=== PATIENT | male | born 1945 | race Caucasian/White ===

== ENCOUNTER → 2018-03-14 | Day surgery (SDC) | payer MEDICARE ==
[~2018-03-14] MED LIST: ASPIRIN81 MG; AVODART0.5 MG PO; CEFAZOLIN SOD 1 GM VIAL ONE; COMBIGAN EYE DRO5 ML; FENTANYL CITRATE/PF 100MCG/2 ML INJ ONE; HYZAAR 50-12.51 EACH; LIDOCAINE 1% W/EPINEPHRINE 20 ML VIAL ONE; MIDAZOLAM HCL 2 MG/2 ML VIAL ONE; MUPIROCIN 2% OINT 22 GM TUBE ONE; POTASSIUM CITR10 MEQ PO; PROPOFOL IV EMULSION 10 MG/ML 20 ML VIAL ONE; TRAVATAN Z5 ML OP
[2018-03-14 08:05] VITALS: BP 116/51
--- NOTE | 2018-03-14 10:30 | Operative Report ---
DATE OF PROCEDURE: March 14, 2018 PREOPERATIVE DIAGNOSES 1. Sublingual salivary gland cyst (ranula), left sublingual area. 2. Cyst of lower lip, submucosal. POSTOPERATIVE DIAGNOSES 1. Sublingual salivary gland cyst (ranula), left sublingual area. 2. Cyst of lower lip, submucosal. PROCEDURES PERFORMED 1. Excision of sublingual salivary cyst. 2. Excision of mucosa, lower lip, with simple repair. ANESTHESIA: MAC/local. HISTORY: The patient is a 72-year-old male with a 1.3-cm cystic mass in the left lower sublingual area and also of the midline of the lower lip. These are consistent with salivary gland cysts. Risks, benefits and alternatives of treatment were discussed with the patient. He is prepared to undergo the procedures outlined. DETAILS OF PROCEDURE: The patient was marked preoperatively in the holding area. He was brought to the operating theater. After the induction of adequate IV sedation, he was prepped and draped in a supine position. A time out was performed. The procedure was begun by infiltrating the intraoral mucosa with 1% Xylocaine with epinephrine on the left sublingual side and in the midline of the lower lip. After waiting an appropriate amount of time for maximum vasoconstrictive effect, the salivary cyst in the sublingual area was incised through the skin and mucosal tissues. The cyst was identified, and it was enucleated from the salivary gland tumor. The bed was made hemostatic using the electrocautery. The wound was irrigated and closed with 5-0 chromic in an interrupted fashion. The incision in the lower lip was made through the mucosa until the cyst was identified. The cyst was enucleated from the orbicularis elina muscle. The wound bed was then made hemostatic using electrocautery. The wound was then closed with 5-0 chromic in an interrupted simple fashion. Both specimens were sent for permanent pathologic examination. The wounds were noted to be hemostatic, and the patient was returned to the recovery room in satisfactory condition and discharged with a postoperative instruction sheet as well as a followup appointment. Job#: [id number]
== END | disposition home or self-care (01) ==
LOC: OR 05:08
PROVIDERS: ATTEND Plastic Surgery
DX: K11.6 Mucocele of salivary gland (principal); K13.0 Diseases of lips; I10 Essential (primary) hypertension; R00.1 Bradycardia, unspecified; Z01.810 Encounter for preprocedural cardiovascular examination; Z79.82 Long term (current) use of aspirin
CPT/HCPCS: 11442; 42408; 88304; 93005; J0690; J2250; 88305

== ENCOUNTER → 2020-11-26 | Outpatient (CLI) | payer MEDICARE, OTHER ==
[~2020-11-26] MED LIST changes: -CEFAZOLIN SOD 1 GM VIAL ONE; -FENTANYL CITRATE/PF 100MCG/2 ML INJ ONE; -LIDOCAINE 1% W/EPINEPHRINE 20 ML VIAL ONE; -MIDAZOLAM HCL 2 MG/2 ML VIAL ONE; -MUPIROCIN 2% OINT 22 GM TUBE ONE; -PROPOFOL IV EMULSION 10 MG/ML 20 ML VIAL ONE
== END ==
LOC: US 14:27
PROVIDERS: ATTEND Family Medicine
DX: R94.4 Abnormal results of kidney function studies (principal)
CPT/HCPCS: 76770